=== PATIENT | male | born 1975 | race Caucasian/White ===

== ENCOUNTER 2018-12-24 09:13 | Emergency (ER) | payer SELFPAY ==
[~2018-12-24] VITALS: Ht 170.2 cm; Wt 75.4 kg
--- OUTSIDE RECORDS SUMMARY | ~2018-12-24 | XMS ---
Demographics + + + | Address | [address] | | | [address] | | | [place] [address] | + + + | Preferred Language | Unknown | + + + | Marital Status | Unknown | + + + | Cheondoism Affiliation | Unknown | + + + | Race | Unknown | + + + | Ethnic Group | Unknown | + + + Author + + + | Author | [facility] | + + + | Organization | [facility] | + + + | Address | [address] | | | [place] [address] | + + + | Phone | | + + + Care Team Providers + + + + | Care Cardiology Physician Name | Role | Phone | + + + + Unavailable | Unavailable | + + + + PROBLEMS + + + + + + + + | Type | Condition | ICD9-CM | OYM17-DF | Onset | Condition | SNOMED | | | | Code | Code | Dates | Status | Code | + + + + + + + + | Assessment | Epididymit | | N45.1 | May, | Active | [id number] | | | is | | | 2017 | | | + + + + + + + + | Assessment | Scabies | | B86 | May, | Active | [id number] | | | | | | 2016 | | | + + + + + + + + ALLERGIES + + + + +--------+ | Substance | Reaction | Event Type | Date | Status | + + + + +--------+ | gold and silver | Unknown | Non Drug | May, | Active | | | | Allergy | | | + + + + +--------+ SOCIAL HISTORY No smoking Hx information available PLAN OF CARE VITAL SIGNS + + + + | Height | 5 ft 6 in in | 2016-06-11 | + + + + | Weight | 178.7 lbs | 2016-06-11 | + + + + | BMI | 28.84 kg/m2 | 2016-06-11 | + + + + | Temperature | 98.7 degrees Fahrenheit | 2016-06-11 | + + + + | Heart Rate | 91 /min | 2016-06-11 | + + + + | Blood pressure systolic | 152 mm Hg | 2016-06-11 | + + + + | Blood pressure diastolic | 101 mm Hg | 2016-06-11 | + + + + MEDICATIONS + + + + + + + +--------+ | Medicati | Instruct | Dosage | Frequenc | Start | End Date | Duration | Status | | on | ions | | y | Date | | | | + + + + + + + +--------+ | Permethr | External | 1 | 24h | 31 May, | 1 Apr, | 1 | Active | | in 5 % | ly Once | applicat | | 2016 | 2016 | dose(s) | | | | a day | ion to | | | | | | | | | affected | | | | | | | | | area | | | | | | + + + + + + + +--------+ RESULTS + +--------+------+ + | Name | Result | Date | Reference Range | + +--------+------+ + | RPR | | | | + +--------+------+ + | RPR | | | | + +--------+------+ + | HSV 1 and | | | | | 2-Specific Ab, IgG | | | | + +--------+------+ + | HSV II IgG, Type | | | | | Spec | | | | + +--------+------+ + | HSV I IgG,Type Spec | | | | + +--------+------+ + | HIV screen | | | | + +--------+------+ + | result | | | | + +--------+------+ + PROCEDURES + + + + + | Procedure | Date Ordered | Related Diagnosis | Body Site | + + + + + | Est Level III | June 11, 2016 | | | | Intermediate | | | | + + + + + IMMUNIZATIONS No Known Immunizations"
[~2018-12-24 09:13] MED LIST: CIPRO500 MG PO; CLINDAMYCIN HC150 MG PO; COLACE100 MG PO; ELIMITE60 GM TOP; IBUPROFEN600 MG PO; IBUPROFEN800 MG PO; MECLIZINE HCL25 MG PO; NAPROSYN500 MG PO; NICORETTE2 MG MM; VICODIN 5-3001 EACH PO
== END 2018-12-24 10:51 | disposition home or self-care (01) ==
LOC: ED 09:13
DX: M19.011 Primary osteoarthritis, right shoulder (principal); M54.2 Cervicalgia; I25.2 Old myocardial infarction; F17.200 Nicotine dependence, unspecified, uncomplicated; Z91.048 Other nonmedicinal substance allergy status
CPT/HCPCS: 99283

== ENCOUNTER 2020-11-14 10:23 | Emergency (ER) | payer OTHER ==
[~2020-11-14] VITALS: Ht 170.2 cm; Wt 75.4 kg
== END 2020-11-14 11:20 | disposition home or self-care (01) ==
LOC: ED 10:23
DX: S20.212A Contusion of left front wall of thorax, initial encounter (principal); W22.8XXA Striking against or struck by other objects, initial encounter; F17.200 Nicotine dependence, unspecified, uncomplicated; Z91.048 Other nonmedicinal substance allergy status
CPT/HCPCS: 71046; 99285-25

== ENCOUNTER 2022-06-22 13:00 | Emergency (ER) | payer OTHER ==
[~2022-06-22] VITALS: Ht 170.2 cm; Wt 89.0 kg
== END 2022-06-22 16:07 | disposition home or self-care (01) ==
LOC: ED 13:00
DX: J39.9 Disease of upper respiratory tract, unspecified (principal); F17.200 Nicotine dependence, unspecified, uncomplicated; Z91.048 Other nonmedicinal substance allergy status; Z20.822 Contact with and (suspected) exposure to COVID-19
CPT/HCPCS: 87502; 87880; U0003

== ENCOUNTER 2022-06-25 17:50 | Emergency (ER) | payer OTHER ==
[~2022-06-25] VITALS: Ht 170.2 cm; Wt 89.0 kg
--- OUTSIDE RECORDS SUMMARY | 2022-06-25 17:56 | XMS ---
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 Vicki VISIT COUNT (12 MO.) 2 [facility] TOTAL 2 NOTE: Visits indicate total known visits. ED/C VISIT TRACKING (12 MO.) 06/25/2022 17:50 [facility] TYPE: Emergency COMPLAINT: - RAPID HEART RATE 06/22/2022 13:01 [facility] [place] TYPE: Emergency COMPLAINT: - SOB, DIZZY, COUGH, HEADACHE DIAGNOSES: - Nicotine dependence, unspecified, uncomplicated - Other nonmedicinal substance allergy status - Contact with and (suspected) exposure to COVID-19 - Cough, unspecified - Disease of upper respiratory tract, unspecified INPATIENT VISIT TRACKING (12 MO.) No inpatient visits to display in this time frame [email or web address]
[2022-06-25 19:21] VITALS: BP 155/115
--- NOTE | 2022-06-26 07:30 | EKG ---
[facility] [address] [place], [place] [address] Signed Sinus tachycardia Otherwise normal ECG When compared with ECG of 25-JUN-2022 17:54, (Unconfirmed) No significant change was found Confirmed by JACINTO RÍOS MD ([id number]) on 06/26/2022 7:30:35 AM Electronically Signed By: JACINTO RÍOS MD 06/26/22 0730 PATIENT NAME: ZBIGNIEWRACQUELCHEN MICHAELA Electrocardiogram DATE OF : 77 PHYSICIAN: JACINTO RÍOS MD REPORT #: [id number] REPORT IS CONFIDENTIAL AND NOT TO BE RELEASED WITHOUT AUTHORIZATION
--- NOTE | 2022-06-26 07:30 | EKG ---
[facility] [address] [facility] [place] [address] Signed Supraventricular tachycardia Otherwise normal ECG When compared with ECG of 20-SEP-2016 12:16, Vent. rate has increased BY 82 BPM Confirmed by JACINTO RÍOS MD ([id number]) on 06/26/2022 7:30:25 AM Electronically Signed By: JACINTO RÍOS MD 06/26/22 0730 PATIENT NAME: CHEN COY Electrocardiogram DATE OF : 77 PHYSICIAN: JACINTO RÍOS MD REPORT #: [id number] REPORT IS CONFIDENTIAL AND NOT TO BE RELEASED WITHOUT AUTHORIZATION
== END 2022-06-25 19:23 | disposition home or self-care (01) ==
LOC: ED 17:50
DX: I47.1 Supraventricular tachycardia (principal); F17.200 Nicotine dependence, unspecified, uncomplicated
CPT/HCPCS: 36415; 71045; 80053; 83735; 84484; 85025; 87502; 93005; 93010; 96374; 99285-25; J0153; U0003